=== PATIENT | female | born 1985 | race Hispanic/Latino ===

== ENCOUNTER 2017-03-04 06:41 | Emergency (ER) | payer SELFPAY ==
[2017-03-04] MEDS ORDERED: Sulfameth/Trimethoprim DS 800-160mg TAB ONE (07:43)
== END 2017-03-04 07:45 | disposition home or self-care (01) ==
LOC: ERS 06:41
DX: L03.211 Cellulitis of face (principal); E28.2 Polycystic ovarian syndrome; Z79.899 Other long term (current) drug therapy
CPT/HCPCS: 99283

== ENCOUNTER 2017-04-14 12:03 | Emergency (ER) | payer SELFPAY ==
[2017-04-14 12:45] LABS: #Eosinphils 0.1 thou/uL (0.0-0.7); #Lymphocytes 2.7 thou/uL (1.20-3.40); #Monocytes 0.4 thou/uL (0.11-0.59); #Neutrophils 5.6 thou/uL (1.40-6.50); %Basophils 0.3 % (0.0-1.0); %Eosinophils 1.1 % (0.0-10.0); %Lymphocytes 30.9 % (21.0-51.0); %Monocytes 4.1 % (0.0-10.0); Hematocrit 41.7 % (36.0-47.0); Mean Platelet Volume 7.7 fL (7.4-10.4); Red Blood Cell (RBC) Count 5.09 mill/uL (4.20-5.40); White Blood Cell (WBC) Count 8.8 thou/uL (4.8-10.8)
[2017-04-14 13:05] LABS: ALT (SGPT) 27 U/L (8-55); AST (SGOT) 21 U/L (5-34); Alkaline Phosphatase 86 U/L (40-150); Anion Gap 15 mmol/L (10-20); BUN (Urea Nitrogen) 11 mg/dL (7.0-18.7); Bilirubin, Total 0.4 mg/dL (0.2-1.2); Calc. Creatinine Clearance 0 mL/min (70-130); Calcium 9.2 mg/dL (7.8-10.44); Carbon Dioxide 23 mmol/L (22-29); Chloride 102 mmol/L (98-107); Estimated GFR-MDRD 78; Globulin 3.6 g/dL (2.4-3.5); Lipase 37 U/L (8-78); Protein, Total 7.8 g/dL (6.0-8.3)
--- NOTE | 2017-04-14 13:40 | CT ---
ABDOMEN AND PELVIS CT SCAN WITHOUT IV CONTRAST: HISTORY: A 31-year-old female with abdominal pain for three days. COMPARISON: 04/08/2016 FINDINGS: The lung bases are clear. Hepatomegaly with marked fatty changes in the liver. Status post cholecy stectomy. No ductal dilatation. The visualized pancreas, spleen, and adrenal glands are unremarkab le. No renal calculus or acute obstruction. Normal appearing appendix. No evidence of large or small bowel obstruction, mass, abscess, adenopathy, or abnormal fluid collection. IMPRESSION: Hepatomegaly with fatty change without ductal dilatation. No renal calculus or acute obstruction . Normal appearing appendix. POS: [facility]
[2017-04-14] MEDS ORDERED: traMADol HCl 50 MG TAB ONE (13:41)
[2017-04-14 13:56] LABS: Bilirubin Negative (Negative); Blood, Urine Trace (Negative); Glucose, Urine (Dipstick) 250 mg/dL (Negative); Ketone, Urine Negative (Negative); Nitrite Negative (Negative); Protein, Urine (Dipstick) Negative (Neg-Trace); Urobilinogen 0.2 mg/dL (0.2-1.0)
[2017-04-14 14:00] LABS: Bacteria/HPF None Seen HPF (None Seen); Hyaline Casts/LPF 0-3 HYALINE CAST LPF (0-3 Hyaline); Squamous Epithelial 0-3 HPF (0-3); WBC/HPF None Seen HPF (0-3)
== END 2017-04-14 14:20 | disposition home or self-care (01) ==
LOC: ERS 12:03
DX: R10.9 Unspecified abdominal pain (principal); R73.9 Hyperglycemia, unspecified
CPT/HCPCS: 36415; 74176; 80053; 81003; 81015; 83690; 84703; 85025

== ENCOUNTER 2018-05-28 15:20 | Emergency (ER) | payer SELFPAY ==
[2018-05-28] MEDS ORDERED: Ondansetron PF 4 MG/2 ML Vial ONE (16:03)
[2018-05-28 16:09] LABS: #Eosinphils 0.1 thou/uL (0.0-0.7); #Lymphocytes 2.1 thou/uL (1.20-3.40); #Monocytes 0.4 thou/uL (0.11-0.59); %Basophils 0.2 % (0.0-1.0); %Eosinophils 0.4 % (0.0-10.0); %Lymphocytes 16.4 % (21.0-51.0); %Monocytes 3.4 % (0.0-10.0); %Neutrophils 79.6 % (42.0-75.0); Hemoglobin 14.3 g/dL (12.0-16.0); Mean Corpuscular HGB CONC 33.9 g/dL (32.0-36.0); Mean Corpuscular Hemoglobin 29.9 pg (27.0-31.0); Mean Corpuscular Volume 88.4 fL (78.0-98.0); Mean Platelet Volume 6.9 fL (7.4-10.4); Platelet Count 327 thou/uL (130-400); RBC Distribution Width 11.1 % (11.5-14.5); Red Blood Cell (RBC) Count 4.79 mill/uL (4.20-5.40); White Blood Cell (WBC) Count 12.6 thou/uL (4.8-10.8)
[2018-05-28 16:31] LABS: ALT (SGPT) 31 U/L (8-55); AST (SGOT) 15 U/L (5-34); Albumin 4.4 g/dL (3.5-5.0); Alkaline Phosphatase 64 U/L (40-150); Anion Gap 11 mmol/L (10-20); BUN (Urea Nitrogen) 13 mg/dL (7.0-18.7); Bilirubin, Total 0.4 mg/dL (0.2-1.2); Calc. Creatinine Clearance 0 mL/min (70-130); Calcium 9.3 mg/dL (7.8-10.44); Carbon Dioxide 28 mmol/L (22-29); Chloride 100 mmol/L (98-107); Estimated GFR-MDRD 85; Globulin 3.4 g/dL (2.4-3.5); Glucose 134 mg/dL (70-105); Lipase 37 U/L (8-78); Potassium 3.1 mmol/L (3.5-5.1); Protein, Total 7.8 g/dL (6.0-8.3); Sodium 136 mmol/L (136-145)
[2018-05-28] MEDS ORDERED: Potassium Chloride 20 MEQ TAB ONE (17:09)
--- NOTE | 2018-05-28 17:09 | ULT ---
RIGHT UPPER QUADRANT ULTRASOUND: DATE: 05/28/2018. HISTORY: Right upper quadrant abdominal pain. History of prior cholecystectomy. FINDINGS: The gallbladder is not visualized, consistent with patient's history of prior cholecystectomy. The c ardiac silhouette measures 0.4 cm in diameter, which is within normal limits. Portions of the liver are partially extruded shadowing from overlying ribs, but no definite focal hep atic lesion is seen. The visualized portions of the pancreas and visualized portions of the IVC demonstrate a normal sonog raphic appearance. The right kidney measures 11.3 cm in length. There is an area of heterogeneity involving the mid portion of right kidney, and the cortex in this r egion also appears more thickened than typically expected measuring 3.1 cm. There are also a few ech ogenic foci with shadowing noted in this region. The exact etiology for this finding is uncertain, b ut a mass involving the right kidney cannot be entirely excluded. Given the suggestion of calcificat ion and area of heterogeneity, further evaluation with CT exam is recommended. IMPRESSION: 1. Heterogeneity involving the mid portion right kidney with suggestion of thickening of the cortex in this region. While a discrete measureable mass is difficult to delineate, there are areas of echo genicity with posterior shadowing also present in this region. Further evaluation with CT scan of th e abdomen with IV contrast is recommended. 2. Cholecystectomy. 3. The above findings involving the right kidney and recommendation for CT scan abdomen were discuss ed with Dr. De Leon in the emergency department on 05/28/2018 at 1652 hours. CODE CR POS: [facility]
[2018-05-28 17:11] LABS: Bilirubin Negative (Negative); Blood, Urine Negative (Negative); Clarity CLEAR (Clear); Glucose, Urine (Dipstick) Negative (Negative); Leukocyte Negative (Negative); Nitrite Negative (Negative); Protein, Urine (Dipstick) Negative (Neg-Trace); Specific Gravity, Urine 1.006 (1.002-1.036); Urobilinogen 0.2 mg/dL (0.2-1.0)
== END 2018-05-28 17:56 | disposition home or self-care (01) ==
LOC: ERS 15:20
DX: R10.9 Unspecified abdominal pain (principal); R42 Dizziness and giddiness; R10.816 Epigastric abdominal tenderness; Z79.84 Long term (current) use of oral hypoglycemic drugs; Z79.899 Other long term (current) drug therapy
CPT/HCPCS: 76705; 80053; 81003; 83690; 84484; 85025; 93005; 96374; J2405

== ENCOUNTER 2018-06-05 00:27 | Emergency (ER) | payer BC, SELFPAY ==
[2018-06-05 01:01] LABS: #Basophils 0.1 thou/uL (0.0-0.2); #Lymphocytes 2.1 thou/uL (1.20-3.40); #Monocytes 0.6 thou/uL (0.11-0.59); #Neutrophils 10.1 thou/uL (1.40-6.50); %Basophils 0.6 % (0.0-1.0); %Eosinophils 0.3 % (0.0-10.0); %Lymphocytes 16.3 % (21.0-51.0); %Monocytes 4.4 % (0.0-10.0); %Neutrophils 78.4 % (42.0-75.0); Hemoglobin 14.4 g/dL (12.0-16.0); Mean Corpuscular HGB CONC 34.3 g/dL (32.0-36.0); Mean Corpuscular Hemoglobin 30.1 pg (27.0-31.0); Mean Corpuscular Volume 87.9 fL (78.0-98.0); Platelet Count 357 thou/uL (130-400); RBC Distribution Width 11.2 % (11.5-14.5); Red Blood Cell (RBC) Count 4.78 mill/uL (4.20-5.40); White Blood Cell (WBC) Count 12.9 thou/uL (4.8-10.8)
[2018-06-05 01:03] LABS: Bilirubin Negative (Negative); Blood, Urine Small (Negative); Clarity CLEAR (Clear); Glucose, Urine (Dipstick) Negative (Negative); Leukocyte Negative (Negative); Nitrite Negative (Negative); Protein, Urine (Dipstick) Negative (Neg-Trace); Specific Gravity, Urine 1.023 (1.002-1.036); Urobilinogen 0.2 mg/dL (0.2-1.0); pH, Urine 5.5 (5.0-9.0)
[2018-06-05 01:06] LABS: Bacteria/HPF None Seen HPF (None Seen); Hyaline Casts/LPF 0-3 HYALINE CAST LPF (0-3 Hyaline); Pathc Cast-AUWi Flag 0.14 (0-2.49); Squamous Epithelial 0-3 HPF (0-3); WBC/HPF 0-3 HPF (0-3)
[2018-06-05 01:11] LABS: Pregnancy Test - Urine (BHCG) Negative (Negative); Pregu Control Background? CLEAR/WHITE (CLR/WHITE); Pregu Control Bar Appear? YES (CONTROL BAR); Specific Gravity 1.023 (1.002-1.036)
[2018-06-05 01:14] LABS: ALT (SGPT) 23 U/L (8-55); AST (SGOT) 16 U/L (5-34); Albumin 4.4 g/dL (3.5-5.0); Alkaline Phosphatase 59 U/L (40-150); Anion Gap 13 mmol/L (10-20); BUN (Urea Nitrogen) 17 mg/dL (7.0-18.7); Bilirubin, Total 0.5 mg/dL (0.2-1.2); Calc. Creatinine Clearance 0 mL/min (70-130); Calcium 9.7 mg/dL (7.8-10.44); Carbon Dioxide 25 mmol/L (22-29); Chloride 105 mmol/L (98-107); Estimated GFR-MDRD 88; Globulin 3.5 g/dL (2.4-3.5); Glucose 138 mg/dL (70-105); Lipase 35 U/L (8-78); Potassium 3.8 mmol/L (3.5-5.1); Protein, Total 7.9 g/dL (6.0-8.3); Sodium 139 mmol/L (136-145)
[2018-06-05] MEDS ORDERED: Lidocaine Viscous Sol 2% 15 ml UD Cup ONE (01:21)
[2018-06-05] MEDS ORDERED: Ondansetron PF 4 MG/2 ML Vial ONE (01:21)
[2018-06-05] MEDS ORDERED: Mag-Al 1200 mg/1200 mg/30 ML UDCUP ONE (01:21)
[2018-06-05] MEDS ORDERED: Morphine 4 MG/ML VIAL ONE (01:21)
--- NOTE | 2018-06-05 07:41 | CT ---
ABDOMEN AND PELVIS CT WITH CONTRAST: Date: 06/05/18 Reference made to 04/14/17 CT exam. CLINICAL INDICATION: Abdominal pain. FINDINGS: The visualized lung bases reveal no significant pathology. Evidence of prior cholecystectomy. There i s no acute abnormality of the solid abdominal organs. No free air or ascites. Abdominal aorta is norm al in caliber. Bowel is incompletely evaluated without enteric contrast. No acute osseous pathology. IMPRESSION: No acute abnormality visualized. POS: [facility]
[2018-06-05] MEDS ORDERED: ISOVUE-370 76%-LOCM 1 ML ONE (17:06)
== END 2018-06-05 03:38 | disposition home or self-care (01) ==
LOC: ERS 00:27
DX: R10.13 Epigastric pain (principal); R19.7 Diarrhea, unspecified
CPT/HCPCS: 74177; 80053; 81003; 81015; 81025; 83690; 85025; 96361; 96374; J2270; J2405

== ENCOUNTER 2018-07-22 06:50 | Emergency (ER) | payer BC ==
[2018-07-22 07:39] LABS: #Eosinphils 0.1 thou/uL (0.0-0.7); #Lymphocytes 1.8 thou/uL (1.20-3.40); #Monocytes 0.4 thou/uL (0.11-0.59); #Neutrophils 5.6 thou/uL (1.40-6.50); %Basophils 0.1 % (0.0-1.0); %Eosinophils 0.9 % (0.0-10.0); %Lymphocytes 23.2 % (21.0-51.0); %Monocytes 4.5 % (0.0-10.0); %Neutrophils 71.3 % (42.0-75.0); Hemoglobin 14.2 g/dL (12.0-16.0); Mean Corpuscular HGB CONC 32.7 g/dL (32.0-36.0); Mean Corpuscular Volume 91.9 fL (78.0-98.0); Mean Platelet Volume 6.9 fL (7.4-10.4); Platelet Count 326 thou/uL (130-400); RBC Distribution Width 11.1 % (11.5-14.5); Red Blood Cell (RBC) Count 4.73 mill/uL (4.20-5.40); White Blood Cell (WBC) Count 7.9 thou/uL (4.8-10.8)
[2018-07-22 08:20] LABS: ALT (SGPT) 23 U/L (8-55); AST (SGOT) 13 U/L (5-34); Albumin 4.2 g/dL (3.5-5.0); Alkaline Phosphatase 55 U/L (40-150); Anion Gap 13 mmol/L (10-20); BUN (Urea Nitrogen) 13 mg/dL (7.0-18.7); Bilirubin, Total 0.7 mg/dL (0.2-1.2); Calc. Creatinine Clearance 0 mL/min (70-130); Calcium 9.1 mg/dL (7.8-10.44); Carbon Dioxide 26 mmol/L (22-29); Chloride 102 mmol/L (98-107); Estimated GFR-MDRD Greater than 90; Globulin 3.1 g/dL (2.4-3.5); Glucose 128 mg/dL (70-105); Lipase 20 U/L (8-78); Potassium 3.7 mmol/L (3.5-5.1); Protein, Total 7.3 g/dL (6.0-8.3); Sodium 137 mmol/L (136-145)
[2018-07-22] MEDS ORDERED: Ondansetron PF 4 MG/2 ML Vial ONE ×2 (08:22→09:34)
[2018-07-22] MEDS ORDERED: Promethazine HCl 25 MG/ML VIAL ONE ×2 (08:22→09:34)
[2018-07-22] MEDS ORDERED: diphenhydrAMINE 50 MG/ML VIAL ONE ×2 (08:22→09:34)
[2018-07-22 09:31] LABS: Bilirubin Negative (Negative); Blood, Urine Negative (Negative); Clarity CLEAR (Clear); Glucose, Urine (Dipstick) Negative (Negative); Leukocyte Negative (Negative); Nitrite Negative (Negative); Protein, Urine (Dipstick) Negative (Neg-Trace); Specific Gravity, Urine 1.017 (1.002-1.036); Urobilinogen 0.2 mg/dL (0.2-1.0)
[2018-07-22 09:35] LABS: Pregnancy Test - Urine (BHCG) Negative (Negative); Specific Gravity 1.017 (1.002-1.036)
[2018-07-22 09:36] LABS: Pregu Control Background? CLEAR/WHITE (CLR/WHITE); Pregu Control Bar Appear? YES (CONTROL BAR)
== END 2018-07-22 11:21 | disposition home or self-care (01) ==
LOC: ERS 06:50
DX: G43.909 Migraine, unspecified, not intractable, without status migrainosus (principal); M62.838 Other muscle spasm; Z79.84 Long term (current) use of oral hypoglycemic drugs; Z79.899 Other long term (current) drug therapy
CPT/HCPCS: 80053; 81003; 81025; 83690; 85025; 85652; 86140; 96365; 96366; 96375; 96376; J1200; J2405; J2550

== ENCOUNTER 2018-09-06 19:20 | Emergency (ER) | payer BC | END 2018-09-06 21:26 | disposition left against medical advice (07) | LOC: ERS 19:20 | DX: Z53.21 Procedure and treatment not carried out due to patient leaving prior to being seen by health care provider (principal) ==

== ENCOUNTER 2018-09-07 07:26 | Emergency (ER) | payer BC ==
--- NOTE | 2018-09-07 08:28 | RAD ---
XR Hand Lt 3 View STANDARD History: [Pain] Comparison: None. Findings: No acute fracture or malalignment. Soft tissues are unremarkable. Impression: No acute abnormality.
== END 2018-09-07 08:56 | disposition home or self-care (01) ==
LOC: ERS 07:26
DX: S61.412A Laceration without foreign body of left hand, initial encounter (principal); S60.222A Contusion of left hand, initial encounter; W25.XXXA Contact with sharp glass, initial encounter

== ENCOUNTER 2019-06-04 15:26 | Emergency (ER) | payer BC | END 2019-06-04 17:10 | disposition home or self-care (01) | LOC: ERS 15:26 | DX: K02.9 Dental caries, unspecified (principal); K03.81 Cracked tooth; R73.03 Prediabetes; Z79.84 Long term (current) use of oral hypoglycemic drugs; Z79.899 Other long term (current) drug therapy | CPT/HCPCS: 99282 ==

== ENCOUNTER 2020-06-04 09:19 | Emergency (ER) | payer BC ==
[2020-06-04] MEDS ORDERED: Dexamethasone 10 MG/ML VIAL ONE (09:35)
[2020-06-04] MEDS ORDERED: Albuterol 200 PUFF (6.7GM INHALER) ONE (09:38)
[2020-06-04] MEDS ORDERED: Acetaminophen 500 MG TAB ONE (09:39)
[2020-06-04] MEDS ORDERED: Azithromycin 250 MG TAB ONE (10:59)
[2020-06-04] MEDS ORDERED: Ondansetron ODT 8 MG TAB ONE (10:59)
--- NOTE | 2020-06-04 11:48 | RAD ---
CHEST 1 VIEW: Date: 06/04/2020 HISTORY: Dyspnea. COVID-positive. FINDINGS: Poor inspiratory effort. Minimal patchy alveolar and ground-glass and interstitial parenchymal change s, mostly in the mid and lower lung zones, evidence for minimal bilateral COVID pneumonia. No signifi cant pleural effusion or cardiomegaly. IMPRESSION: Evidence for minimal patchy bilateral COVID pneumonia. POS: [facility]
== END 2020-06-04 11:20 | disposition home or self-care (01) ==
LOC: ERS 09:19
DX: U07.1 COVID-19 (principal); J12.82 Pneumonia due to coronavirus disease 2019; Z79.899 Other long term (current) drug therapy; E11.9 Type 2 diabetes mellitus without complications
CPT/HCPCS: 71045; J1100; Q0162

== ENCOUNTER 2020-06-07 07:09 | Inpatient (IN) | payer BC ==
[2020-06-07] MEDS ORDERED: Morphine 4 MG/ML VIAL ONE (07:45)
[2020-06-07] MEDS ORDERED: cefTRIAXone\\ROCEPHIN 2 GM VIAL ONE (07:46)
[2020-06-07] MEDS ORDERED: Dexamethasone 10 MG/ML VIAL ONE (07:46)
[2020-06-07] MEDS ORDERED: Azithromycin 500 MG VIAL ONE (07:46)
[2020-06-07] MEDS ORDERED: Albuterol 200 PUFF (6.7GM INHALER) ONE (07:46)
[2020-06-07] MEDS ORDERED: Aspirin Chewable 81 MG TAB ONE (07:46)
[2020-06-07] MEDS ORDERED: Ondansetron PF 4 MG/2 ML Vial ONE (07:46)
[2020-06-07 07:51] LABS: #Lymphocytes 1.3 thou/uL (1.20-3.40); #Monocytes 0.4 thou/uL (0.11-0.59); #Neutrophils 9.8 thou/uL (1.40-6.50); %Eosinophils 0.2 % (0.0-10.0); %Lymphocytes 11.1 % (21.0-51.0); %Monocytes 3.2 % (0.0-10.0); %Neutrophils 85.5 % (42.0-75.0); Hemoglobin 14.2 g/dL (12.0-16.0); Mean Corpuscular HGB CONC 34.3 g/dL (32.0-36.0); Mean Corpuscular Hemoglobin 29.6 pg (27.0-31.0); Mean Corpuscular Volume 86.4 fL (78.0-98.0); Mean Platelet Volume 7.4 fL (7.4-10.4); Platelet Count 244 thou/uL (130-400); RBC Distribution Width 11.2 % (11.5-14.5); Red Blood Cell (RBC) Count 4.79 mill/uL (4.20-5.40); White Blood Cell (WBC) Count 11.4 thou/uL (4.8-10.8)
--- NOTE | 2020-06-07 08:03 | RAD ---
Chest one view HISTORY: Pneumonia. Follow-up. COMPARISON: 06/04/2020. FINDINGS: Cardiac silhouette is magnified by projection. Shallow inspiration accentuates pulmonary ma rkings. Infiltrate at the left lower lobe is more dense than on the prior study. Patchy right lower lobe infi ltrate is also slightly more pronounced. No evidence of pneumothorax. Metallic clips over the gallbladder fossa. IMPRESSION : Radiographic worsening of bilateral lower lobe infiltrates.
[2020-06-07 08:13] LABS: ALT (SGPT) 18 U/L (8-55); AST (SGOT) 17 U/L (5-34); Alkaline Phosphatase 85 U/L (40-110); Anion Gap 18 mmol/L (10-20); BUN (Urea Nitrogen) 7 mg/dL (7.0-18.7); Bilirubin, Total 0.7 mg/dL (0.2-1.2); Calc. Creatinine Clearance 0 mL/min (70-130); Calcium 8.9 mg/dL (7.8-10.44); Carbon Dioxide 26 mmol/L (22-29); Chloride 95 mmol/L (98-107); Globulin 3.9 g/dL (2.4-3.5); Glucose 302 mg/dL (70-105); Potassium 3.5 mmol/L (3.5-5.1); Protein, Total 7.9 g/dL (6.0-8.3); Sodium 135 mmol/L (136-145)
[2020-06-07 08:31] LABS: PTT 30.1 sec (22.9-36.1); Prothrombin Time 13.3 sec (12.0-14.7)
[2020-06-07 08:34] LABS: D-Dimer Test Less than 0.27 *mcg/mL (0.27-0.43)
[2020-06-07] MEDS ORDERED: Enoxaparin Sodium 40 MG/0.4 ML SYRINGE ONE (08:40)
[2020-06-07 09:01] LABS: SARS-CoV-2 NAA Rapid Test DETECTED (NotDetected)
[2020-06-07 09:20] LABS: Bacteria/HPF 4+ HPF (None Seen); Bilirubin Negative (Negative); Blood, Urine Trace (Negative); Clarity Clear (Clear); Glucose, Urine (Dipstick) 150 mg/dL (Negative); Ketone, Urine 10 mg/dL (Negative); Leukocyte Negative Leu/uL (Negative); Nitrite Negative (Negative); Protein, Urine (Dipstick) 50 mg/dL (Neg-Trace); Specific Gravity, Urine 1.013 (1.002-1.036); Urobilinogen Normal mg/dL (Less than 2); pH, Urine 6.5 (5.0-9.0)
[2020-06-07] MEDS ORDERED: Ketorolac Tromethamine 30 MG/ML VIAL ONE (09:28)
[2020-06-07] MEDS ORDERED: Ondansetron PF 4 MG/2 ML Vial IVP PRN (12:00)
[2020-06-07] MEDS ORDERED: Ondansetron ODT 4 MG TAB SL PRN (12:00)
[2020-06-07] MEDS ORDERED: Acetaminophen 325 MG TAB PO PRN ×2 (12:00→12:06)
[2020-06-07] MEDS ORDERED: Albuterol 200 PUFF (6.7GM INHALER) INH PRN (12:00)
[2020-06-07] MEDS ORDERED: hydrALAZINE 20 MG/ML VIAL SLOW IVP PRN (12:06)
[2020-06-07] MEDS ORDERED: Dextrose 50% Abboject 50 ML SYRINGE SLOW IVP PRN (12:06)
[2020-06-07] MEDS ORDERED: Calcium Carbonate 500 MG ChewTAB PO PRN (12:06)
[2020-06-07] MEDS ORDERED: Ondansetron ODT 4 MG TAB PO PRN (12:06)
[2020-06-07] MEDS ORDERED: Dextrose 5% in Water 1,000 ML IV PRN (12:06)
[2020-06-07] MEDS ORDERED: Ibuprofen 600 MG TAB PO PRN (12:06)
[2020-06-07 12:28] LABS: Troponin I Less than 0.010 ng/mL (< 0.028)
--- NOTE | 2020-06-07 13:34 | HP ---
CHIEF COMPLAINT: Having trouble breathing." HISTORY OF PRESENT ILLNESS: Ms. Miranda is a pleasant 34-year-old female, who has a history of diabetes mellitus type 2. She says that the Thursday before last, she began having generalized weakness and lost her sense of smell and taste. The following day, she started having fever and cough and shortness of breath and also on the first day she had cold-like symptoms. She says that she has been having persistent fever and cough and congestion and then on the day prior to admission, she started having body aches and pains in her chest and more and more difficulty breathing. She was evaluated in the emergency room and found to be hypoxic. She also has bilateral infiltrates consistent with COVID pneumonia and she is COVID positive and she is being admitted for treatment. The patient has had symptoms of nausea and vomiting as well as diarrhea and some dark stools, but otherwise no complaints. REVIEW OF SYSTEMS: All systems were reviewed and are negative except for that mentioned in the history of present illness. PAST MEDICAL HISTORY: Significant for diabetes mellitus. PAST SURGICAL HISTORY: She has had a cholecystectomy and hysterectomy. ALLERGIES: NO KNOWN DRUG ALLERGIES. SOCIAL HISTORY: She is a nonsmoker and nondrinker. She lives with family. FAMILY HISTORY: No history of any heritable diseases. ALLERGIES: NO KNOWN DRUG ALLERGIES. MEDICATIONS: Her medications include; 1. Glipizide 10 mg p.o. daily. 2. Azithromycin 250 mg daily. 3. Medrol 4 mg daily. 4. Promethazine 25 mg q.8 hours. 5. Albuterol inhaler as needed. PHYSICAL EXAMINATION: GENERAL: She is alert and oriented. She appears to be in some distress with regard to dyspnea. She is well-developed and well-nourished, slightly obese. VITAL SIGNS: Blood pressure was 168/84, heart rate 99, respiratory rate of 23, and temperature was 99.3. HEENT: Pupils are equal, round, and reactive. Extraocular muscles are intact. Her sclerae anicteric. Throat, there is no erythema. No exudates. NECK: No adenopathy. No bruits. LUNGS: She has rales bilaterally, the right greater than the left. No wheezing, but she did have some rhonchi. CARDIOVASCULAR: She has a normal S1 and S2. There is no S3 or S4. No murmurs, clicks, or rubs. ABDOMEN: Obese. It is soft. She did have some mild lower and right upper quadrant tenderness. There is no rebound, no guarding, no organomegaly. EXTREMITIES: There was no calf tenderness. No effusions. No warmth. No erythema. She has palpable dorsalis pedis pulses bilaterally. SKIN AND INTEGUMENT: No skin changes. No rashes. LABORATORY DATA: On her lab results, the white blood cell count is 11.4, hemoglobin 14.2, hematocrit is 41.4, and platelet count was 244. INR is 1.0. D-dimer was less than 0.27. Sodium 135, potassium 3.5, chloride is 95, BUN of 7, creatinine 0.77, and glucose is 302. Urinalysis, there was 4+ bacteria, but 4 to 6 squamous cells. Chest x-ray showed patchy infiltrates throughout with the right greater than the left, and this is by my reading. ASSESSMENT AND PLAN: 1. This is a 34-year-old female, who presents with acute respiratory failure due to COVID pneumonia. She has failed outpatient management, has become hypoxic and therefore, she is being admitted. She is right within the window of remdesivir. Therefore, we will go ahead and get this started since she is at day 9 of symptoms. Continue Decadron. Place her on deep venous thrombosis prophylaxis as well as gastrointestinal prophylaxis and she is also on empiric antibiotics for superimposed community-acquired pneumonia. 2. Diabetes mellitus. Restart her home medications as well as a sliding scale. 3. Urinary tract infection. The Rocephin hopefully should cover this and we will get a urine culture and follow up on that as well. Job ID: [id number]
[2020-06-07] MEDS: HYDROcodone/Acetaminophen 5/325 mg Tablet PO PRN ×2 (14:50→18:56)
[2020-06-07 15:41] VITALS: BMI 32.4
[2020-06-07 16:14] LABS: Troponin I Less than 0.010 ng/mL (< 0.028)
[2020-06-07] MEDS ORDERED: REMDESIVIR (EUA) 200 MG in Sodium Chloride 0.9% 250 ML 210 ML IV SCH (16:15)
[2020-06-07] MEDS: HumaLOG 300 UNITS/3 ML VIAL SC PRN ×2 (17:19→20:21)
[2020-06-08] MEDS: HumaLOG 300 UNITS/3 ML VIAL SC PRN ×3 (05:43→20:32)
[2020-06-08] MEDS: HYDROcodone/Acetaminophen 5/325 mg Tablet PO PRN (05:48)
[2020-06-08 06:20] LABS: #Basophils 0.1 thou/uL (0.0-0.2); #Lymphocytes 1.1 thou/uL (1.20-3.40); #Monocytes 0.6 thou/uL (0.11-0.59); #Neutrophils 9.9 thou/uL (1.40-6.50); %Basophils 0.9 % (0.0-1.0); %Eosinophils 0.1 % (0.0-10.0); %Lymphocytes 9.2 % (21.0-51.0); %Monocytes 4.7 % (0.0-10.0); %Neutrophils 85.1 % (42.0-75.0); Hemoglobin 13.1 g/dL (12.0-16.0); Mean Corpuscular HGB CONC 33.6 g/dL (32.0-36.0); Mean Corpuscular Hemoglobin 29.3 pg (27.0-31.0); Mean Corpuscular Volume 87.2 fL (78.0-98.0); Mean Platelet Volume 7.3 fL (7.4-10.4); Platelet Count 251 thou/uL (130-400); RBC Distribution Width 11.3 % (11.5-14.5); Red Blood Cell (RBC) Count 4.48 mill/uL (4.20-5.40); White Blood Cell (WBC) Count 11.6 thou/uL (4.8-10.8)
[2020-06-08 06:40] LABS: Anion Gap 17 mmol/L (10-20); BUN (Urea Nitrogen) 11 mg/dL (7.0-18.7); Calc. Creatinine Clearance 182 mL/min (70-130); Calcium 8.6 mg/dL (7.8-10.44); Carbon Dioxide 25 mmol/L (22-29); Chloride 101 mmol/L (98-107); Glucose 259 mg/dL (70-105); Potassium 3.6 mmol/L (3.5-5.1); Sodium 139 mmol/L (136-145)
[2020-06-08] MEDS: Enoxaparin Sodium 40 MG/0.4 ML SYRINGE SC SCH (08:46)
[2020-06-08] MEDS: Ascorbic Acid 500 mg Chewable Tablet PO SCH (08:46)
[2020-06-08] MEDS: Cholecalciferol (Vitamin D3) 400 UNITS TAB PO SCH (08:46)
[2020-06-08] MEDS: Dexamethasone 4 mg/ml Vial SLOW IVP SCH (08:46)
[2020-06-08] MEDS: Zinc Sulfate 220 MG CAP PO SCH (08:47)
[2020-06-08] MEDS: cefTRIAXone\\ROCEPHIN 1 GM in Sodium Chloride 0.9% 100 ML IVPB SCH (08:49)
[2020-06-08] MEDS ORDERED: Dexamethasone 4 MG TAB PO SCH (09:00)
--- NOTE | 2020-06-08 11:20 | PDOC.HOSPP ---
- Subjective Encounter Date: 06/08/20 Encounter Time: 11:19 Subjective: Ms. Miranda was seen today in follow-up of COVID pneumonia and respiratory failyre. She continues to feel chest pain when she breathes. She says it is difficult to take in a complete breath. She is crying and says she feels unc omfortable. - Objective Vital Signs & Weight: Vital Signs (12 hours) Temp Pulse Resp BP Pulse Ox 06/08/20 07:33 98.2 F 82 16 128/87 91 L 06/08/20 06:02 98.4 F 78 18 138/81 90 L 06/08/20 01:01 97.7 F 71 20 132/84 94 L Weight Weight 207 lb 3.752 oz I&O: 06/07/20 06/08/20 06/09/20 06:59 06:59 06:59 Intake Total 450 Balance 450 Result Diagrams: 06/08/20 05:51 06/08/20 05:51 Additional Labs: Accuchecks 06/08/20 06/07/20 06/07/20 04:44 20:03 16:30 POC Glucose 272 H 316 H 388 H Hospitalist ROS - Medication Medications: Active Medications Generic Name Dose Route Start Last Admin Trade Name Freq PRN Reason Stop Dose Admin Hydrocodone Bitart/Acetaminophen 1 tab 06/07/20 12:06 06/08/20 05:48 Hydrocodone/Acetaminophen 5/325 Mg Tablet PO 1 tab Q4H PRN Administration Moderate Pain (4-6) Ascorbic Acid 1,000 mg 06/08/20 09:00 06/08/20 08:46 Ascorbic Acid 500 Mg Chewable Tablet PO 1,000 mg DAILY ROB Administration Cholecalciferol 400 units 06/08/20 09:00 06/08/20 08:46 Cholecalciferol (Vitamin D3) 400 Units Tab PO 400 units DAILY ROB Administration Dexamethasone 6 mg 06/08/20 09:00 06/08/20 08:46 Dexamethasone 4 Mg/Ml Vial SLOW IVP 6 mg DAILY ROB Administration Enoxaparin Sodium 40 mg 06/08/20 09:00 06/08/20 08:46 Enoxaparin Sodium 40 Mg/0.4 Ml Syringe SC 40 mg 0900 ROB Administration Ceftriaxone Sodium 1 gm/ 100 mls @ 200 mls/hr 06/08/20 08:00 06/08/20 08:49 Sodium Chloride IVPB 100 mls 0800 ROB Administration Insulin Human Lispro 0 units 06/07/20 12:06 06/08/20 05:43 Humalog 300 Units/3 Ml Vial SC 6 unit .MODERATE SLIDING SC PRN Administration Moderate Correctional Scale Insulin Human Lispro 0 units 06/07/20 12:06 06/07/20 20:21 Humalog 300 Units/3 Ml Vial SC 4 unit .BEDTIME SLIDING SC PRN Administration Bedtime Correctional Scale Zinc Sulfate 220 mg 06/08/20 09:00 06/08/20 08:47 Zinc Sulfate 220 Mg Cap PO Not Given DAILY ROB - Exam Eye: PERRL, anicteric sclera Heart: RRR, no murmur, no gallops, no rubs, normal peripheral pulses Respiratory: rales Gastrointestinal: soft, non-tender, non-distended, normal bowel sounds, no palpable masses, no hepatomegaly Extremities: no cyanosis, no edema Hosp A/P (1) Acute respiratory failure due to COVID-19 Code(s): U07.1 - COVID-19; J96.00 - ACUTE RESPIRATORY FAILURE, UNSP W HYPOXIA OR HYPERCAPNIA Status: Acute (2) Diabetes mellitus type 2 in obese Code(s): E11.69 - TYPE 2 DIABETES MELLITUS WITH OTHER SPECIFIED COMPLICATION; E66.9 - OBESITY, UNSPECIFIED Status: Acute - Plan * Acute respiratory failure with hypoxemia- continue Decadron IV and Remdesivir. * Continue empiric antibiotics * Will add Incentive Spirometry * His oxygen requirements have increased, but chest X-ray did not demonstrate much change- will monitor * DM- blood glucose is a bit elevated- will continue to titrate insulin, and continue SSI * AFIB- his heart rate is stable, will continue Cardizem, and Lovenox for CVA prophylaxis
[2020-06-08] MEDS ORDERED: Morphine 2 MG/ML VIAL SLOW IVP PRN (11:21)
[2020-06-08] MEDS: Azithromycin 250 MG in Sodium Chloride 0.9% 250 ML 250 ML IVPB SCH (11:32)
[2020-06-08] MEDS: Morphine 4 MG/ML VIAL SLOW IVP PRN ×3 (11:33→20:31)
[2020-06-08] MEDS: REMDESIVIR (EUA) 100 MG in Sodium Chloride 0.9% 250 ML 230 ML IV SCH (18:00)
[2020-06-09] MEDS: HumaLOG 300 UNITS/3 ML VIAL SC PRN ×4 (05:32→21:29)
[2020-06-09] MEDS: Dexamethasone 4 mg/ml Vial SLOW IVP SCH (09:29)
[2020-06-09] MEDS: Enoxaparin Sodium 40 MG/0.4 ML SYRINGE SC SCH (09:30)
[2020-06-09] MEDS: Ascorbic Acid 500 mg Chewable Tablet PO SCH (09:31)
[2020-06-09] MEDS: Cholecalciferol (Vitamin D3) 400 UNITS TAB PO SCH (09:31)
[2020-06-09] MEDS: Zinc Sulfate 220 MG CAP PO SCH (09:31)
[2020-06-09] MEDS: Ondansetron PF 4 MG/2 ML Vial IVP PRN (09:31)
[2020-06-09] MEDS: cefTRIAXone\\ROCEPHIN 1 GM in Sodium Chloride 0.9% 100 ML IVPB SCH (09:32)
[2020-06-09] MEDS: HYDROcodone/Acetaminophen 5/325 mg Tablet PO PRN ×3 (09:33→21:42)
[2020-06-09] MEDS: Azithromycin 250 MG in Sodium Chloride 0.9% 250 ML 250 ML IVPB SCH (11:47)
[2020-06-09] MEDS ORDERED: Insulin Glargine 10 UNITS in Pre-Filled Syringe 1 EACH SC SCH (14:15)
[2020-06-09] MEDS: guaiFENesin/Codeine 200 mg/20 mg 10 ml Cup PO PRN (17:44)
[2020-06-09] MEDS: glipiZIDE 5 MG TAB PO SCH (17:45)
[2020-06-09] MEDS: REMDESIVIR (EUA) 100 MG in Sodium Chloride 0.9% 250 ML 230 ML IV SCH (18:01)
--- NOTE | 2020-06-09 18:36 | PDOC.HOSPP ---
- Subjective Encounter Date: 06/09/20 Encounter Time: 14:00 Subjective: Patient seen and examined for respiratory failure due to COVID-19 pneumonia. Requiring O2 supplementation. On remdesivir. Has some dry cough. Denies any new complaints. - Objective Vital Signs & Weight: Vital Signs (12 hours) Temp Pulse Resp BP Pulse Ox 06/09/20 16:00 98.5 F 76 16 135/82 94 L 06/09/20 11:00 98.4 F 69 16 136/82 96 06/09/20 08:00 91 L 06/09/20 07:00 98.3 F 74 16 121/78 91 L Weight Weight 207 lb 3.752 oz I&O: 06/08/20 06/09/20 06/10/20 06:59 06:59 06:59 Intake Total 450 1550 Balance 450 1550 Result Diagrams: 06/08/20 05:51 06/08/20 05:51 Additional Labs: Accuchecks 06/09/20 06/09/20 06/09/20 16:08 11:20 04:14 POC Glucose 365 H 256 H 241 H 06/08/20 19:44 POC Glucose 353 H Abnormal Lab Results - Last 48 hrs 06/08/20 05:51: WBC 11.6 H, RDW 11.3 L, MPV 7.3 L, Neutrophils % 85.1 H, Lymphocytes % 9.2 L, Neutrophils # 9.9 H, Lymphocytes # 1.1 L, Monocytes # 0.6 H 06/08/20 05:51: C-Reactive Protein 6.38 H 06/08/20 05:51: Ferritin 716.37 H 06/08/20 05:51: D-Dimer Less than 0.27 L 06/09/20 06:39: C-Reactive Protein 2.27 H 06/09/20 06:39: Ferritin 669.37 H Microbiology - Entire Visit 06/07/20 07:33 Venous blood - Left Arm Blood Culture - Preliminary NO GROWTH AT 48 HOURS 06/07/20 07:33 Venous blood - Right Hand Blood Culture - Preliminary NO GROWTH AT 48 HOURS 06/07/20 08:38 Urine clean catch Urine Culture - Final Hospitalist ROS - Review of Systems Cardiovascular: denies: chest pain, palpitations, orthopnea, paroxysmal noc. dyspnea, edema, light headedness, other Gastrointestinal: denies: nausea, vomiting, abdominal pain, diarrhea, constipation, melena, hematochezia, other - Medication Medications: Active Medications Generic Name Dose Route Start Last Admin Trade Name Freq PRN Reason Stop Dose Admin Hydrocodone Bitart/Acetaminophen 1 tab 06/07/20 12:06 06/09/20 17:47 Hydrocodone/Acetaminophen 5/325 Mg Tablet PO 1 tab Q4H PRN Administration Moderate Pain (4-6) Albuterol Sulfate 2 puff 06/07/20 12:00 06/08/20 16:07 Albuterol 200 Puff (6.7gm Inhaler) INH 2 puff Q2H PRN Administration SOB &/or Wheezing Ascorbic Acid 1,000 mg 06/08/20 09:00 06/09/20 09:31 Ascorbic Acid 500 Mg Chewable Tablet PO 1,000 mg DAILY ROB Administration Cholecalciferol 400 units 06/08/20 09:00 06/09/20 09:31 Cholecalciferol (Vitamin D3) 400 Units Tab PO 400 units DAILY ROB Administration Dexamethasone 6 mg 06/08/20 09:00 06/09/20 09:29 Dexamethasone 4 Mg/Ml Vial SLOW IVP 6 mg DAILY ROB Administration Enoxaparin Sodium 40 mg 06/08/20 09:00 06/09/20 09:30 Enoxaparin Sodium 40 Mg/0.4 Ml Syringe SC 40 mg 0900 ROB Administration Glipizide 5 mg 06/09/20 16:30 06/09/20 17:45 Glipizide 5 Mg Tab PO 5 mg BID-AC ROB Administration Guaifenesin/Codeine Phosphate 10 ml 06/07/20 12:06 06/09/20 17:44 Guaifenesin/Codeine 200 Mg/20 Mg 10 Ml Cup PO 10 ml Q6H PRN Administration Cough Ceftriaxone Sodium 1 gm/ 100 mls @ 200 mls/hr 06/08/20 08:00 06/09/20 09:32 Sodium Chloride IVPB 100 mls 0800 ROB Administration Remdesivir 100 mg/ Sodium 250 mls @ 250 mls/hr 06/08/20 17:00 06/09/20 18:01 Chloride IV 06/11/20 17:59 250 mls 1700 ROB Administration Insulin Human Lispro 0 units 06/07/20 12:06 06/09/20 17:52 Humalog 300 Units/3 Ml Vial SC 10 unit .MODERATE SLIDING SC PRN Administration Moderate Correctional Scale Insulin Human Lispro 0 units 06/07/20 12:06 06/08/20 20:32 Humalog 300 Units/3 Ml Vial SC 5 unit .BEDTIME SLIDING SC PRN Administration Bedtime Correctional Scale Ondansetron HCl 4 mg 06/07/20 12:06 06/09/20 09:31 Ondansetron Pf 4 Mg/2 Ml Vial IVP 4 mg Q6H PRN Administration Nausea/Vomiting Zinc Sulfate 220 mg 06/08/20 09:00 06/09/20 09:31 Zinc Sulfate 220 Mg Cap PO 220 mg DAILY ROB Administration - Exam General Appearance: ill appearing Neck: supple, no JVD Heart: no gallops, no rubs Respiratory: no wheezes, rales, rhonchi Gastrointestinal: soft, non-distended, normal bowel sounds, no guarding, no rigidity Extremities: no cyanosis, no clubbing Neurological: no new deficit Psychiatric: A&O x 3 Hosp A/P - Plan DVT proph w/lovenox, DVT proph w/SCDs Acute hypoxic respiratory failure due to COVID-19 pneumoniaPOA Diabetes mellitus type 2 with hyperglycemia due to steroids Obesity with a BMI 32.5 Plan: Continue O2 supplementation with bronchodilators. Continue remdesivir with dexamethasone. Will restart glipizide and add low-dose Lantus due to hypoglycemia. Continue sliding scale. Add Mucinex. Add Pepcid for GI prophylaxis. Continue Lovenox. Continue isolation.
[2020-06-09] MEDS: guaiFENesin ER 600 MG TAB PO SCH (21:30)
[2020-06-09] MEDS: Famotidine 20 MG TAB PO SCH (21:30)
[2020-06-10] MEDS: HYDROcodone/Acetaminophen 5/325 mg Tablet PO PRN ×4 (03:43→21:55)
[2020-06-10 06:18] LABS: #Lymphocytes 1.8 thou/uL (1.20-3.40); #Monocytes 0.6 thou/uL (0.11-0.59); #Neutrophils 6.1 thou/uL (1.40-6.50); %Basophils 0.2 % (0.0-1.0); %Eosinophils 0.4 % (0.0-10.0); %Lymphocytes 20.6 % (21.0-51.0); %Monocytes 7.2 % (0.0-10.0); %Neutrophils 71.5 % (42.0-75.0); Hemoglobin 14.4 g/dL (12.0-16.0); Mean Corpuscular Hemoglobin 28.9 pg (27.0-31.0); Mean Corpuscular Volume 87.7 fL (78.0-98.0); Platelet Count 374 thou/uL (130-400); RBC Distribution Width 11.1 % (11.5-14.5); Red Blood Cell (RBC) Count 4.97 mill/uL (4.20-5.40); White Blood Cell (WBC) Count 8.6 thou/uL (4.8-10.8)
[2020-06-10 06:43] LABS: ALT (SGPT) 20 U/L (8-55); AST (SGOT) 14 U/L (5-34); Albumin 3.4 g/dL (3.5-5.0); Alkaline Phosphatase 72 U/L (40-110); Anion Gap 15 mmol/L (10-20); BUN (Urea Nitrogen) 14 mg/dL (7.0-18.7); Bilirubin, Total 0.5 mg/dL (0.2-1.2); CRP (Inflammatory) 0.98 mg/dL (= or < 0.5); Calc. Creatinine Clearance 185 mL/min (70-130); Calcium 8.6 mg/dL (7.8-10.44); Carbon Dioxide 26 mmol/L (22-29); Chloride 102 mmol/L (98-107); Globulin 3.3 g/dL (2.4-3.5); Glucose 119 mg/dL (70-105); Potassium 3.7 mmol/L (3.5-5.1); Protein, Total 6.7 g/dL (6.0-8.3); Sodium 139 mmol/L (136-145)
[2020-06-10] MEDS: Dexamethasone 4 mg/ml Vial SLOW IVP SCH (09:06)
[2020-06-10] MEDS: Ondansetron PF 4 MG/2 ML Vial IVP PRN (09:06)
[2020-06-10] MEDS: Enoxaparin Sodium 40 MG/0.4 ML SYRINGE SC SCH (09:07)
[2020-06-10] MEDS: cefTRIAXone\\ROCEPHIN 1 GM in Sodium Chloride 0.9% 100 ML IVPB SCH (09:08)
[2020-06-10] MEDS: Zinc Sulfate 220 MG CAP PO SCH (09:10)
[2020-06-10] MEDS: glipiZIDE 5 MG TAB PO SCH ×2 (09:10→16:48)
[2020-06-10] MEDS: Famotidine 20 MG TAB PO SCH ×2 (09:10→21:53)
[2020-06-10] MEDS: Multivit, Therapeutic 1 TAB PO SCH (09:10)
[2020-06-10] MEDS: Cholecalciferol (Vitamin D3) 400 UNITS TAB PO SCH (09:10)
[2020-06-10] MEDS: guaiFENesin ER 600 MG TAB PO SCH ×2 (09:10→21:53)
[2020-06-10] MEDS: guaiFENesin/Codeine 200 mg/20 mg 10 ml Cup PO PRN (09:10)
[2020-06-10] MEDS: Ascorbic Acid 500 mg Chewable Tablet PO SCH (09:11)
[2020-06-10] MEDS: Insulin Glargine 10 UNITS in Pre-Filled Syringe 1 EACH SC SCH (10:20)
[2020-06-10] MEDS: HumaLOG 300 UNITS/3 ML VIAL SC PRN ×3 (12:24→21:53)
[2020-06-10] MEDS: REMDESIVIR (EUA) 100 MG in Sodium Chloride 0.9% 250 ML 230 ML IV SCH (17:34)
[2020-06-10] MEDS: Melatonin 3 MG TAB PO PRN (21:53)
[2020-06-10] MEDS: Doxycycline 100 MG CAP PO SCH (21:53)
--- NOTE | 2020-06-10 23:47 | PDOC.HOSPP ---
- Subjective Encounter Date: 06/10/20 Encounter Time: 15:30 Subjective: Patient seen and examined for COVID 19 pneumonia. On 4 L oxygen. Short of breath on [id number] exertion. Denies any other complaints - Objective Vital Signs & Weight: Vital Signs (12 hours) Temp Pulse Resp BP BP Pulse Ox 06/10/20 19:44 98.0 F 75 18 129/80 95 06/10/20 18:35 98.3 F 76 20 158/99 H 06/10/20 15:45 96 06/10/20 12:00 98.3 F 76 18 128/71 99 Weight Weight 207 lb 3.752 oz I&O: 06/09/20 06/10/20 06/11/20 06:59 06:59 06:59 Intake Total 1550 Balance 1550 Result Diagrams: 06/10/20 05:56 06/10/20 05:56 Additional Labs: Accuchecks 06/10/20 06/10/20 19:47 04:15 POC Glucose 327 H 124 H Abnormal Lab Results - Last 48 hrs 06/09/20 06:39: C-Reactive Protein 2.27 H 06/09/20 06:39: Ferritin 669.37 H 06/10/20 05:56: C-Reactive Protein 0.98 H, Albumin 3.4 L, Albumin/Globulin Ratio 1.0 L 06/10/20 05:56: Ferritin 469.44 H 06/10/20 05:56: RDW 11.1 L, MPV 7.0 L, Lymphocytes % 20.6 L, Monocytes # 0.6 H Microbiology - Entire Visit 06/07/20 07:33 Venous blood - Left Arm Blood Culture - Preliminary NO GROWTH AT 48 HOURS 06/07/20 07:33 Venous blood - Right Hand Blood Culture - Preliminary NO GROWTH AT 48 HOURS 06/07/20 08:38 Urine clean catch Urine Culture - Final Hospitalist ROS - Review of Systems Cardiovascular: denies: chest pain, palpitations, orthopnea, paroxysmal noc. dyspnea, edema, light headedness, other Gastrointestinal: denies: nausea, vomiting, abdominal pain, diarrhea, constipation, melena, hematochezia, other - Medication Medications: Active Medications Generic Name Dose Route Start Last Admin Trade Name Freq PRN Reason Stop Dose Admin Hydrocodone Bitart/Acetaminophen 1 tab 06/07/20 12:06 06/10/20 21:55 Hydrocodone/Acetaminophen 5/325 Mg Tablet PO 1 tab Q4H PRN Administration Moderate Pain (4-6) Albuterol Sulfate 2 puff 06/07/20 12:00 06/08/20 16:07 Albuterol 200 Puff (6.7gm Inhaler) INH 2 puff Q2H PRN Administration SOB &/or Wheezing Ascorbic Acid 1,000 mg 06/08/20 09:00 06/10/20 09:11 Ascorbic Acid 500 Mg Chewable Tablet PO 1,000 mg DAILY ROB Administration Cholecalciferol 400 units 06/08/20 09:00 06/10/20 09:10 Cholecalciferol (Vitamin D3) 400 Units Tab PO 400 units DAILY ROB Administration Dexamethasone 6 mg 06/08/20 09:00 06/10/20 09:06 Dexamethasone 4 Mg/Ml Vial SLOW IVP 6 mg DAILY ROB Administration Doxycycline Hyclate 100 mg 06/10/20 21:00 06/10/20 21:53 Doxycycline 100 Mg Cap PO 100 mg BID ROB Administration Enoxaparin Sodium 40 mg 06/08/20 09:00 06/10/20 09:07 Enoxaparin Sodium 40 Mg/0.4 Ml Syringe SC 40 mg 0900 ROB Administration Famotidine 20 mg 06/09/20 21:00 06/10/20 21:53 Famotidine 20 Mg Tab PO 20 mg BID ROB Administration Glipizide 5 mg 06/09/20 16:30 06/10/20 16:48 Glipizide 5 Mg Tab PO 5 mg BID-AC ROB Administration Guaifenesin 600 mg 06/09/20 21:00 06/10/20 21:53 Guaifenesin Er 600 Mg Tab PO 600 mg Q12HR ROB Administration Guaifenesin/Codeine Phosphate 10 ml 06/07/20 12:06 06/10/20 09:10 Guaifenesin/Codeine 200 Mg/20 Mg 10 Ml Cup PO 10 ml Q6H PRN Administration Cough Remdesivir 100 mg/ Sodium 250 mls @ 250 mls/hr 06/08/20 17:00 06/10/20 17:34 Chloride IV 06/11/20 17:59 250 mls 1700 ROB Administration Insulin Glargine 10 units/ 0.1 mls @ 0 mls/hr 06/10/20 09:00 06/10/20 10:20 Miscellaneous Medication SC 0.1 mls QAM ROB Administration Insulin Human Lispro 0 units 06/07/20 12:06 06/10/20 16:52 Humalog 300 Units/3 Ml Vial SC 8 unit .MODERATE SLIDING SC PRN Administration Moderate Correctional Scale Insulin Human Lispro 0 units 06/07/20 12:06 06/10/20 21:53 Humalog 300 Units/3 Ml Vial SC 4 unit .BEDTIME SLIDING SC PRN Administration Bedtime Correctional Scale Melatonin 3 mg 06/09/20 13:52 06/10/20 21:53 Melatonin 3 Mg Tab PO 3 mg HSPRN PRN Administration Insomnia Multivitamins 1 tab 06/10/20 09:00 06/10/20 09:10 Multivit, Therapeutic 1 Tab PO 1 tab DAILY ROB Administration Ondansetron HCl 4 mg 06/07/20 12:06 06/10/20 09:06 Ondansetron Pf 4 Mg/2 Ml Vial IVP 4 mg Q6H PRN Administration Nausea/Vomiting Zinc Sulfate 220 mg 06/08/20 09:00 06/10/20 09:10 Zinc Sulfate 220 Mg Cap PO 220 mg DAILY ROB Administration - Exam General Appearance: ill appearing Neck: supple, no JVD Heart: RRR, no gallops Respiratory: no wheezes, rales, rhonchi Gastrointestinal: soft, non-distended Extremities: no cyanosis Neurological: no new deficit Hosp A/P - Plan DVT proph w/lovenox, DVT proph w/SCDs Acute hypoxic respiratory failure due to COVID-19 pneumonia Diabetes mellitus type 2 with hyperglycemia due to steroids Obesity with a BMI 32.5 Plan: Continue O2 supplementation. Continue Remdesivir. Continued Decadron. Continue glipizide with low-dose Lantus. Continue sliding scale. DC planning after Remdesivir. Patient will need home oxygen at discharge 06/09 Continue O2 supplementation with bronchodilators. Continue remdesivir with dexamethasone. Will restart glipizide and add low-dose Lantus due to hypoglycemia. Continue sliding scale. Add Mucinex. Add Pepcid for GI prophylaxis. Continue Lovenox. Continue isolation.
[2020-06-10] MEDS ORDERED: diphenhydrAMINE 25 MG CAP PO PRN (23:48)
[2020-06-11 06:22] LABS: #Eosinphils 0.1 thou/uL (0.0-0.7); #Monocytes 0.6 thou/uL (0.11-0.59); #Neutrophils 6.1 thou/uL (1.40-6.50); %Eosinophils 0.6 % (0.0-10.0); %Lymphocytes 23.3 % (21.0-51.0); %Monocytes 6.3 % (0.0-10.0); %Neutrophils 69.9 % (42.0-75.0); Hemoglobin 13.4 g/dL (12.0-16.0); Mean Corpuscular HGB CONC 33.4 g/dL (32.0-36.0); Mean Corpuscular Hemoglobin 28.9 pg (27.0-31.0); Mean Corpuscular Volume 86.5 fL (78.0-98.0); Mean Platelet Volume 6.9 fL (7.4-10.4); Platelet Count 411 thou/uL (130-400); Red Blood Cell (RBC) Count 4.64 mill/uL (4.20-5.40); White Blood Cell (WBC) Count 8.7 thou/uL (4.8-10.8)
[2020-06-11 06:43] LABS: ALT (SGPT) 19 U/L (8-55); AST (SGOT) 13 U/L (5-34); Albumin 3.2 g/dL (3.5-5.0); Alkaline Phosphatase 67 U/L (40-110); Anion Gap 14 mmol/L (10-20); BUN (Urea Nitrogen) 15 mg/dL (7.0-18.7); Bilirubin, Total 0.5 mg/dL (0.2-1.2); CRP (Inflammatory) 0.82 mg/dL (= or < 0.5); Calc. Creatinine Clearance 197 mL/min (70-130); Calcium 8.5 mg/dL (7.8-10.44); Carbon Dioxide 29 mmol/L (22-29); Chloride 100 mmol/L (98-107); Globulin 3.2 g/dL (2.4-3.5); Glucose 148 mg/dL (70-105); Potassium 3.5 mmol/L (3.5-5.1); Protein, Total 6.4 g/dL (6.0-8.3); Sodium 139 mmol/L (136-145)
[2020-06-11] MEDS: guaiFENesin ER 600 MG TAB PO SCH ×2 (09:40→21:10)
[2020-06-11] MEDS: Famotidine 20 MG TAB PO SCH ×2 (09:40→21:10)
[2020-06-11] MEDS: Multivit, Therapeutic 1 TAB PO SCH (09:40)
[2020-06-11] MEDS: Doxycycline 100 MG CAP PO SCH ×2 (09:40→21:10)
[2020-06-11] MEDS: Cholecalciferol (Vitamin D3) 400 UNITS TAB PO SCH (09:40)
[2020-06-11] MEDS: Ascorbic Acid 500 mg Chewable Tablet PO SCH (09:41)
[2020-06-11] MEDS: glipiZIDE 5 MG TAB PO SCH ×2 (09:41→16:30)
[2020-06-11] MEDS: Enoxaparin Sodium 40 MG/0.4 ML SYRINGE SC SCH (09:41)
[2020-06-11] MEDS: Zinc Sulfate 220 MG CAP PO SCH (09:41)
[2020-06-11] MEDS: Insulin Glargine 10 UNITS in Pre-Filled Syringe 1 EACH SC SCH (09:42)
[2020-06-11] MEDS: Dexamethasone 4 mg/ml Vial SLOW IVP SCH (09:46)
[2020-06-11] MEDS: HYDROcodone/Acetaminophen 5/325 mg Tablet PO PRN ×3 (09:52→21:11)
[2020-06-11] MEDS: guaiFENesin/Codeine 200 mg/20 mg 10 ml Cup PO PRN (09:53)
[2020-06-11] MEDS: Ondansetron PF 4 MG/2 ML Vial IVP PRN (10:15)
[2020-06-11] MEDS: HumaLOG 300 UNITS/3 ML VIAL SC PRN ×3 (12:24→21:11)
--- NOTE | 2020-06-11 13:56 | PDOC.HOSPP ---
- Subjective Encounter Date: 06/11/20 Subjective: The patient's shortness of breath is improving. She is still requiring 3 to 4 L of oxygen to maintain her O2 saturations greater than 90%. - Objective Vital Signs & Weight: Vital Signs (12 hours) Temp Pulse Resp BP BP Pulse Ox 06/11/20 12:00 98.2 F 72 18 145/95 H 95 06/11/20 08:00 98.1 F 74 18 123/85 97 06/11/20 03:58 98.1 F 74 18 145/88 H 98 Weight Weight 207 lb 3.752 oz Result Diagrams: 06/11/20 05:54 06/11/20 05:54 Additional Labs: Accuchecks 06/11/20 06/11/20 06/10/20 12:09 04:02 19:47 POC Glucose 316 H 145 H 327 H Hospitalist ROS - Medication Medications: Active Medications Generic Name Dose Route Start Last Admin Trade Name Freq PRN Reason Stop Dose Admin Hydrocodone Bitart/Acetaminophen 1 tab 06/07/20 12:06 06/11/20 09:52 Hydrocodone/Acetaminophen 5/325 Mg Tablet PO 1 tab Q4H PRN Administration Moderate Pain (4-6) Albuterol Sulfate 2 puff 06/07/20 12:00 06/08/20 16:07 Albuterol 200 Puff (6.7gm Inhaler) INH 2 puff Q2H PRN Administration SOB &/or Wheezing Ascorbic Acid 1,000 mg 06/08/20 09:00 06/11/20 09:41 Ascorbic Acid 500 Mg Chewable Tablet PO 1,000 mg DAILY ROB Administration Cholecalciferol 400 units 06/08/20 09:00 06/11/20 09:40 Cholecalciferol (Vitamin D3) 400 Units Tab PO 400 units DAILY ROB Administration Dexamethasone 6 mg 06/08/20 09:00 06/11/20 09:46 Dexamethasone 4 Mg/Ml Vial SLOW IVP 6 mg DAILY ROB Administration Doxycycline Hyclate 100 mg 06/10/20 21:00 06/11/20 09:40 Doxycycline 100 Mg Cap PO 100 mg BID ROB Administration Enoxaparin Sodium 40 mg 06/08/20 09:00 06/11/20 09:41 Enoxaparin Sodium 40 Mg/0.4 Ml Syringe SC 40 mg 899 ROB Administration Famotidine 20 mg 06/09/20 21:00 06/11/20 09:40 Famotidine 20 Mg Tab PO 20 mg BID ROB Administration Glipizide 5 mg 06/09/20 16:30 06/11/20 09:41 Glipizide 5 Mg Tab PO 5 mg BID-AC ROB Administration Guaifenesin 600 mg 06/09/20 21:00 06/11/20 09:40 Guaifenesin Er 600 Mg Tab PO 600 mg Q12HR ROB Administration Guaifenesin/Codeine Phosphate 10 ml 06/07/20 12:06 06/11/20 09:53 Guaifenesin/Codeine 200 Mg/20 Mg 10 Ml Cup PO 10 ml Q6H PRN Administration Cough Remdesivir 100 mg/ Sodium 250 mls @ 250 mls/hr 06/08/20 17:00 06/10/20 17:34 Chloride IV 06/11/20 17:59 250 mls 1700 ROB Administration Insulin Glargine 10 units/ 0.1 mls @ 0 mls/hr 06/10/20 09:00 06/11/20 09:42 Miscellaneous Medication SC 0.1 mls QAM ROB Administration Insulin Human Lispro 0 units 06/07/20 12:06 06/10/20 16:52 Humalog 300 Units/3 Ml Vial SC 8 unit .MODERATE SLIDING SC PRN Administration Moderate Correctional Scale Insulin Human Lispro 0 units 06/07/20 12:06 06/10/20 21:53 Humalog 300 Units/3 Ml Vial SC 4 unit .BEDTIME SLIDING SC PRN Administration Bedtime Correctional Scale Melatonin 3 mg 06/09/20 13:52 06/10/20 21:53 Melatonin 3 Mg Tab PO 3 mg HSPRN PRN Administration Insomnia Multivitamins 1 tab 06/10/20 09:00 06/11/20 09:40 Multivit, Therapeutic 1 Tab PO 1 tab DAILY ROB Administration Ondansetron HCl 4 mg 06/07/20 12:06 06/11/20 10:15 Ondansetron Pf 4 Mg/2 Ml Vial IVP 4 mg Q6H PRN Administration Nausea/Vomiting Zinc Sulfate 220 mg 06/08/20 09:00 06/11/20 09:41 Zinc Sulfate 220 Mg Cap PO 220 mg DAILY ROB Administration - Exam ENT: normocephalic atraumatic Neck: supple Respiratory: normal chest expansion, no tachypnea Gastrointestinal: soft Neurological: cranial nerve grossly intact, no new deficit Hosp A/P - Plan Hosp A/P - Plan DVT proph w/lovenox, DVT proph w/SCDs Acute hypoxic respiratory failure due to COVID-19 pneumonia Diabetes mellitus type 2 with hyperglycemia due to steroids Obesity with a BMI 32.5 Plan: 06/11 Wean off oxygen as tolerated. Continue remdesivir and dexamethasone. Case management to arrange home O2. 06/10 Continue O2 supplementation. Continue Remdesivir. Continued Decadron. C ontinue glipizide with low-dose Lantus. Continue sliding scale. DC planning after Remdesivir. Patient will need home oxygen at discharge 06/09 Continue O2 supplementation with bronchodilators. Continue remdesivir with dexamethasone. Will restart glipizide and add low-dose Lantus due to hypoglyce manuela. Continue sliding scale. Add Mucinex. Add Pepcid for GI prophylaxis. Continue Lovenox. Continue isolation.
[2020-06-11] MEDS: REMDESIVIR (EUA) 100 MG in Sodium Chloride 0.9% 250 ML 230 ML IV SCH (18:26)
[2020-06-11] MEDS: Melatonin 3 MG TAB PO PRN (21:10)
[2020-06-12] MEDS: glipiZIDE 5 MG TAB PO SCH ×2 (08:27→15:51)
[2020-06-12] MEDS: Cholecalciferol (Vitamin D3) 400 UNITS TAB PO SCH (08:27)
[2020-06-12] MEDS: Dexamethasone 4 mg/ml Vial SLOW IVP SCH (08:28)
[2020-06-12] MEDS: Famotidine 20 MG TAB PO SCH ×2 (08:28→21:49)
[2020-06-12] MEDS: Insulin Glargine 10 UNITS in Pre-Filled Syringe 1 EACH SC SCH (08:28)
[2020-06-12] MEDS: guaiFENesin ER 600 MG TAB PO SCH ×2 (08:28→21:49)
[2020-06-12] MEDS: Doxycycline 100 MG CAP PO SCH ×2 (08:28→21:49)
[2020-06-12] MEDS: Multivit, Therapeutic 1 TAB PO SCH (08:29)
[2020-06-12] MEDS: Zinc Sulfate 220 MG CAP PO SCH (08:29)
[2020-06-12] MEDS: Ascorbic Acid 500 mg Chewable Tablet PO SCH (10:07)
[2020-06-12] MEDS: Enoxaparin Sodium 40 MG/0.4 ML SYRINGE SC SCH (10:07)
[2020-06-12] MEDS: HumaLOG 300 UNITS/3 ML VIAL SC PRN ×3 (12:04→21:50)
[2020-06-12] MEDS: Melatonin 3 MG TAB PO PRN (21:49)
--- NOTE | 2020-06-12 23:26 | PDOC.HOSPP ---
- Subjective Encounter Date: 06/12/20 Encounter Time: 16:00 Subjective: Patient seen and examined for pneumonia. Symptomatically feeling somewhat better. Denies any fever or chills. Still short of breath on [id number] exertion - Objective Vital Signs & Weight: Vital Signs (12 hours) Temp Pulse Resp BP BP Pulse Ox 06/12/20 19:46 98.0 F 71 18 120/74 100 06/12/20 16:32 98.0 F 85 20 147/93 H 100 Weight Weight 207 lb 3.752 oz I&O: 06/11/20 06/12/20 06/13/20 06:59 06:59 06:59 Intake Total 720 Balance 720 Result Diagrams: 06/11/20 05:54 06/11/20 05:54 Additional Labs: Accuchecks 06/12/20 06/12/20 06/12/20 19:48 15:40 11:12 POC Glucose 353 H 456 H 367 H 06/12/20 06/11/20 06/10/20 04:15 16:29 15:44 POC Glucose 183 H 397 H 432 H Hospitalist ROS - Review of Systems Cardiovascular: denies: chest pain, palpitations, orthopnea, paroxysmal noc. dyspnea, edema, light headedness, other Gastrointestinal: denies: nausea, vomiting, abdominal pain, diarrhea, constipation, melena, hematochezia, other - Medication Medications: Active Medications Generic Name Dose Route Start Last Admin Trade Name Freq PRN Reason Stop Dose Admin Hydrocodone Bitart/Acetaminophen 1 tab 06/07/20 12:06 06/11/20 21:11 Hydrocodone/Acetaminophen 5/325 Mg Tablet PO 1 tab Q4H PRN Administration Moderate Pain (4-6) Albuterol Sulfate 2 puff 06/07/20 12:00 06/08/20 16:07 Albuterol 200 Puff (6.7gm Inhaler) INH 2 puff Q2H PRN Administration SOB &/or Wheezing Ascorbic Acid 1,000 mg 06/08/20 09:00 06/12/20 10:07 Ascorbic Acid 500 Mg Chewable Tablet PO 1,000 mg DAILY ROB Administration Cholecalciferol 400 units 06/08/20 09:00 06/12/20 08:27 Cholecalciferol (Vitamin D3) 400 Units Tab PO 400 units DAILY ROB Administration Dexamethasone 6 mg 06/08/20 09:00 06/12/20 08:28 Dexamethasone 4 Mg/Ml Vial SLOW IVP 6 mg DAILY ROB Administration Doxycycline Hyclate 100 mg 06/10/20 21:00 06/12/20 21:49 Doxycycline 100 Mg Cap PO 100 mg BID ROB Administration Enoxaparin Sodium 40 mg 06/08/20 09:00 06/12/20 10:07 Enoxaparin Sodium 40 Mg/0.4 Ml Syringe SC 40 mg 0900 ROB Administration Famotidine 20 mg 06/09/20 21:00 06/12/20 21:49 Famotidine 20 Mg Tab PO 20 mg BID ROB Administration Glipizide 5 mg 06/09/20 16:30 06/12/20 15:51 Glipizide 5 Mg Tab PO 5 mg BID-AC ROB Administration Guaifenesin 600 mg 06/09/20 21:00 06/12/20 21:49 Guaifenesin Er 600 Mg Tab PO 600 mg Q12HR ROB Administration Guaifenesin/Codeine Phosphate 10 ml 06/07/20 12:06 06/11/20 09:53 Guaifenesin/Codeine 200 Mg/20 Mg 10 Ml Cup PO 10 ml Q6H PRN Administration Cough Insulin Glargine 10 units/ 0.1 mls @ 0 mls/hr 06/10/20 09:00 06/12/20 08:28 Miscellaneous Medication SC 0.1 mls QAM ROB Administration Insulin Human Lispro 0 units 06/07/20 12:06 06/12/20 15:51 Humalog 300 Units/3 Ml Vial SC 10 unit .MODERATE SLIDING SC PRN Administration Moderate Correctional Scale Insulin Human Lispro 0 units 06/07/20 12:06 06/12/20 21:50 Humalog 300 Units/3 Ml Vial SC 5 unit .BEDTIME SLIDING SC PRN Administration Bedtime Correctional Scale Melatonin 3 mg 06/09/20 13:52 06/12/20 21:49 Melatonin 3 Mg Tab PO 3 mg HSPRN PRN Administration Insomnia Multivitamins 1 tab 06/10/20 09:00 06/12/20 08:29 Multivit, Therapeutic 1 Tab PO 1 tab DAILY ROB Administration Ondansetron HCl 4 mg 06/07/20 12:06 06/11/20 10:15 Ondansetron Pf 4 Mg/2 Ml Vial IVP 4 mg Q6H PRN Administration Nausea/Vomiting Zinc Sulfate 220 mg 06/08/20 09:00 06/12/20 08:29 Zinc Sulfate 220 Mg Cap PO 220 mg DAILY ROB Administration - Exam General Appearance: ill appearing Neck: supple, no JVD Heart: RRR, no gallops Respiratory: no wheezes, rales, rhonchi Gastrointestinal: soft, non-tender, normal bowel sounds Extremities: no cyanosis Hosp A/P - Plan DVT proph w/lovenox, DVT proph w/SCDs Acute hypoxic respiratory failure due to COVID-19 pneumonia Diabetes mellitus type 2 with hyperglycemia due to steroids Obesity with a BMI 32.5 Plan: Vital signs remained stable except for patient requiring 4 L oxygen nasal cannula. Weight continue supportive care. Will continue Decadron. Inflammatory markers are improving. Discharge planning in 24-40 hours once O2 requirement improves. Patient will require home oxygen at discharge. Change sliding scale to aggressive. Continue current dose of Lantus with glipizide. 06/10 Continue O2 supplementation. Continue Remdesivir. Continued Decadron. Continue glipizide with low-dose Lantus. Continue sliding scale. DC planning after Remdesivir. Patient will need home oxygen at discharge 06/09 Continue O2 supplementation with bronchodilators. Continue remdesivir with dexamethasone. Will restart glipizide and add low-dose Lantus due to hypoglycemia. Continue sliding scale. Add Mucinex. Add Pepcid for GI prophylaxis. Continue Lovenox. Continue isolation.
[2020-06-13 07:59] LABS: Anion Gap 12 mmol/L (10-20); BUN (Urea Nitrogen) 17 mg/dL (7.0-18.7); Calc. Creatinine Clearance 162 mL/min (70-130); Calcium 8.8 mg/dL (7.8-10.44); Carbon Dioxide 28 mmol/L (22-29); Chloride 101 mmol/L (98-107); Glucose 240 mg/dL (70-105); Potassium 4.1 mmol/L (3.5-5.1); Sodium 137 mmol/L (136-145)
[2020-06-13] MEDS: Zinc Sulfate 220 MG CAP PO SCH (08:49)
[2020-06-13] MEDS: Famotidine 20 MG TAB PO SCH (08:49)
[2020-06-13] MEDS: Doxycycline 100 MG CAP PO SCH (08:49)
[2020-06-13] MEDS: glipiZIDE 5 MG TAB PO SCH (08:49)
[2020-06-13] MEDS: Dexamethasone 4 mg/ml Vial SLOW IVP SCH (08:49)
[2020-06-13] MEDS: Multivit, Therapeutic 1 TAB PO SCH (08:50)
[2020-06-13] MEDS: Insulin Glargine 10 UNITS in Pre-Filled Syringe 1 EACH SC SCH (08:50)
[2020-06-13] MEDS: Cholecalciferol (Vitamin D3) 400 UNITS TAB PO SCH (08:50)
[2020-06-13] MEDS: HumaLOG 300 UNITS/3 ML VIAL SC PRN ×2 (08:50→11:34)
[2020-06-13] MEDS: guaiFENesin ER 600 MG TAB PO SCH (08:50)
[2020-06-13] MEDS: Ascorbic Acid 500 mg Chewable Tablet PO SCH (08:50)
[2020-06-13] MEDS: Enoxaparin Sodium 40 MG/0.4 ML SYRINGE SC SCH (08:51)
[2020-06-13 12:14] VITALS: BP 150/85; TEMP 98
--- NOTE | 2020-06-13 22:05 | PDOC.DS.DS ---
Provider - Provider Date of Admission: 06/07/20 09:16 Date of Discharge: 06/13/20 Admitting Provider: Sim Kay MD Primary Care Physician: Andi Rutherford MD Course - Hospital Course Hospital Course: Patient is a 34-year-old female with diabetes mellitus type 2 presented to the hospital with shortness of breath. Her work-up was consistent with COVID-19 pneumonia. Her initial O2 saturation was 84% on room air. She was placed on O2 supplementation along with bronchodilators and dexamethasone. Her inflammatory markers gradually improved. She also completed remdesivir during this hospital stay. She appears stable for discharge. Due to hyperglycemia she was started on low-dose Lantus. Final diagnosis: Acute hypoxic respiratory failure due to COVID-19 pneumonia Diabetes mellitus type 2 with hyperglycemia due to steroids Obesity with a BMI 32.5 Resuscitation Status: 06/07/20 11:58 Resuscitation Status Routine Resuscitation Status: FULL: Full Resuscitation - Labs Lab Results: 06/11/20 05:54 06/13/20 06:58 Abnormal Lab Results - Last 48 hrs 06/12/20 06:10: C-Reactive Protein 0.56 H 06/12/20 06:10: Ferritin 357.46 H Microbiology - Entire Visit 06/07/20 07:33 Venous blood - Left Arm Blood Culture - Final NO GROWTH IN 5 DAYS 06/07/20 07:33 Venous blood - Right Hand Blood Culture - Final NO GROWTH IN 5 DAYS 06/07/20 08:38 Urine clean catch Urine Culture - Final - Physical Exam Vitals: Vital Signs (12 hours) Temp BP 06/13/20 12:00 98 F 150/85 H Weight Weight 207 lb 3.752 oz Physical Exam: The patient was seen and examined on the day of discharge. Plan - Discharge Medications Prescriptions: Dexamethasone 6 mg PO ASDIR #5 tablet Insulin Glargine,Hum.Rec.Anlog [Lantus Solostar] 10 unit SC DAILY #1 pen Albuterol Sulfate HFA (OR) [Proventil Hfa (or)] 2 puff INH Q4H #1 inh Doxycycline [Vibramycin] 100 mg PO BID #7 cap Home Medications: Medication Instructions Recorded Confirmed Type glipiZIDE 10 mg PO DAILY-AC 06/09/20 06/09/20 History Albuterol Sulfate HFA (OR) 2 puff INH Q4H #1 inh 06/13/20 Rx [Proventil Hfa (or)] Dexamethasone 6 mg PO ASDIR #5 tablet 06/13/20 Rx Doxycycline [Vibramycin] 100 mg PO BID #7 cap 06/13/20 Rx Insulin Glargine,Hum.Rec.Anlog 10 unit SC DAILY #1 pen 06/13/20 Rx [Lantus Solostar] Allergies: No Known Allergies Allergy (Unverified 06/07/20 10:40) - Follow up Plan Referrals: Gerard Gonzales MD [Active] - Dequan Lambert MD [MD Not on Staff] - 7 Days Disposition: HOME Quality - Care Measures CORE MEASURES:: N/A
--- NOTE | 2020-06-16 14:49 | EKG ---
Test Reason : Blood Pressure : / mmHG Vent. Rate : 096 BPM Atrial Rate : 096 BPM P-R Int : 140 ms QRS Dur : 108 ms QT Int : 354 ms P-R-T Axes : 022 -32 040 degrees QTc Int : 447 ms Normal sinus rhythm Left axis deviation Minimal voltage criteria for LVH, may be normal variant Abnormal ECG Confirmed by PEYTON Hogan, ODALYS ([id number]), graphics editor LEROY LI ([id number]) on 06/16/2020 2:49:22 PM Referred By: Confirmed By:ODALYS TODD M.D.
== END 2020-06-13 12:59 | disposition home or self-care (01) | DRG 177 ==
LOC: ERS 07:09 → T4-B 09:16
PROVIDERS: ADMIT Internal Medicine; ATTEND Internal Medicine
PROC: XW033E5 Introduction of Remdesivir Anti-infective into Peripheral Vein, Percutaneous Approach, New Technology Group 5 (ICD-10-PCS; principal; 2020-06-07)
DX: U07.1 COVID-19 (principal); J96.01 Acute respiratory failure with hypoxia; J12.82 Pneumonia due to coronavirus disease 2019; N39.0 Urinary tract infection, site not specified; T38.0X5A Adverse effect of glucocorticoids and synthetic analogues, initial encounter; E11.65 Type 2 diabetes mellitus with hyperglycemia; E11.649 Type 2 diabetes mellitus with hypoglycemia without coma; E66.9 Obesity, unspecified; I48.91 Unspecified atrial fibrillation; Z90.49 Acquired absence of other specified parts of digestive tract; Z90.710 Acquired absence of both cervix and uterus; Z79.2 Long term (current) use of antibiotics; Z79.84 Long term (current) use of oral hypoglycemic drugs; Z79.51 Long term (current) use of inhaled steroids; Z68.32 Body mass index [BMI] 32.0-32.9, adult
CPT/HCPCS: 0240U; 36415; 36416; 71045; 80048; 80053; 81003; 81015; 82728; 83605; 83735; 83880; 84484; 85025; 85379; 85610; 85730; 86140; 87040; 87086; 93005; 94760; 96365; 96367; 96372; 96374; 96375; J0456; J0696; J1100; J1650; J1815; J1885; J2270; J2405; J3490; J7050; Q0162